=== PATIENT | male | born 1960 | race Hispanic/Latino ===

== ENCOUNTER 2022-03-01 05:30 | Day surgery (SDC) | payer BC ==
[2022-02-28 09:19] VITALS: BMI 21.9
[2022-03-01] MEDS ORDERED: EPINEPHrine 1 MG/ML AMP ONE (06:34)
[2022-03-01] MEDS ORDERED: Bupivacaine PF 0.5% 30 ML VIAL ONE (06:35)
[2022-03-01] MEDS ORDERED: PROPOFOL 40 ML ONE (06:41)
[2022-03-01] MEDS ORDERED: Fentanyl 100 MCG/2 ML VIAL ONE ×2 (06:41→08:00)
[2022-03-01] MEDS ORDERED: PROPOFOL 0 ML ONE (06:41)
[2022-03-01] MEDS ORDERED: Lidocaine 2% PF 5 ML VIAL ONE (06:41)
[2022-03-01] MEDS ORDERED: Dexamethasone 4 mg/ml Vial ONE (06:42)
[2022-03-01] MEDS ORDERED: Metoclopramide HCl 10 MG/2 ML VIAL ONE (06:42)
[2022-03-01] MEDS ORDERED: Ondansetron PF 4 MG/2 ML Vial ONE (06:42)
[2022-03-01] MEDS ORDERED: CEFAZOLIN 2 GM VIAL ONE (06:55)
[2022-03-01] MEDS ORDERED: Acetaminophen 325 MG TAB PO PRN (07:52)
[2022-03-01] MEDS ORDERED: HYDROcodone/Acetaminophen 5/325 mg Tablet PO PRN (07:52)
== END 2022-03-01 08:30 | disposition home or self-care (01) ==
LOC: CSHSDC 05:30
PROVIDERS: ATTEND Surgery
PROC: 05HM33Z Insertion of Infusion Device into Right Internal Jugular Vein, Percutaneous Approach (ICD-10-PCS; principal; 2022-03-01)
PROC: B513ZZA Fluoroscopy of Right Jugular Veins, Guidance (ICD-10-PCS; principal; 2022-03-01)
DX: C20 Malignant neoplasm of rectum (principal); R06.09 Other forms of dyspnea; D64.9 Anemia, unspecified; I10 Essential (primary) hypertension; F41.9 Anxiety disorder, unspecified; Z79.899 Other long term (current) drug therapy; Z20.822 Contact with and (suspected) exposure to COVID-19
CPT/HCPCS: C1788; J0171; J0690; J1100; J1642; J2001; J2405; J2704; J2765; J3010; S0020

== ENCOUNTER 2022-06-14 13:27 | Outpatient (CLI) | payer BC ==
[~2022-06-14 13:27] MED LIST: Magnevist 469MG/ML 20 ML VIAL ONE
== END 2022-06-14 13:28 | disposition home or self-care (01) ==
LOC: CSHMRI 13:27
PROVIDERS: ATTEND Radiology Radiation Oncology
DX: C20 Malignant neoplasm of rectum (principal); Z92.21 Personal history of antineoplastic chemotherapy; Z92.3 Personal history of irradiation
CPT/HCPCS: 72197

== ENCOUNTER 2022-07-05 12:51 | Outpatient (CLI) | payer BC | END 2022-07-05 12:52 | disposition home or self-care (01) | LOC: CSHRAD 12:51 | PROVIDERS: ATTEND Internal Medicine Hematology & Oncology | DX: Z01.818 Encounter for other preprocedural examination (principal); C20 Malignant neoplasm of rectum | CPT/HCPCS: 93005 ==